=== PATIENT | female | born 1985 | race Caucasian/White ===

== ENCOUNTER → 2024-03-19 | Outpatient (CLI) | payer OTHER ==
[~2024-03-19] MED LIST: AMOXICILLIN875 MG PO; AUGMENTIN 500 M1 TAB PO; Albuterol 0.083% Neb Soln 2.5 MG/3 ML UD IH ONE; BUPROPRION; FLEXERIL10 MG PO; FLUOXETINE; Levalbuterol Neb Soln 1.25 MG/3 ML UD IH ONE; Methacholine Vial A (Clear Label Base-Cntrl) IH ONE; Methacholine Vial B (Red Label) 0.0625 MG/ML 3 ML VIAL.NEB IH ONE; Methacholine Vial C (Orange Label) 0.25 MG/ML 3 ML VIAL.NEB IH ONE; Methacholine Vial D (Yellow Label) 1 MG/ML 3 ML VIAL.NEB IH ONE; Methacholine Vial E (Green Label) 4 MG/ML 3 ML VIAL.NEB IH ONE; PYRIDIUM200 M1 PO
== END ==
LOC: COL.CARD 13:36
DX: R06.02 Shortness of breath (principal)
CPT/HCPCS: J7674